=== PATIENT | female | born 1990 | race Caucasian/White ===

== ENCOUNTER 2020-11-23 05:29 | Observation (INO) ==
[2020-11-23 06:18] LABS: ABS Eosinophils 0.1 10^3/ul (0-0.6); ABS Lymphocytes 0.5 10^3/ul (1.0-4.8); ABS Monocytes 0.2 10^3/ul (0-0.8); ABS Neutrophils 10.2 10^3/ul (1.5-7.7); Hematocrit 40 % (35-47); Hemoglobin 13.3 g/dL (12.0-16.0); Lymphocyte % 4.8 %; Mean Corpuscular HGB Conc 34 g/dL (31-36); Mean Corpuscular Hemoglobin 31 pg (27-31); Mean Corpuscular Volume 93 fL (80-97); Mean Platelet Volume 7.4 fL (7.4-10.4); Platelet Count 375 10^3/uL (150-450); Red Blood Count 4.26 10^6 /uL (3.70-4.87); Red Cell Distribution Width 13 % (10-15); White Blood Count 11.1 10^3/uL (3.5-10.8)
[2020-11-23 06:30] LABS: INR 1.16 (0.82-1.09)
[2020-11-23 06:48] LABS: Albumin 4.7 g/dL (3.2-5.2); Albumin/Globulin Ratio 1.7 (1-3); BUN/Creatinine Ratio 23.1 (8-20); C Reactive Protein 11.55 mg/L (<8.01); Calcium 9.1 mg/dL (8.6-10.3); EGFR African American 128.6 (>60); EGFR Non-African American 106.3 (>60); Globulin 2.8 g/dL (2-4); Magnesium 1.8 mg/dL (1.9-2.7); Potassium 4.1 mmol/L (3.5-5.0); Total Bilirubin 0.4 mg/dL (0.2-1.0); Total Protein 7.5 g/dL (6.4-8.9)
[2020-11-23 07:05] LABS: Ferritin 76.9 ng/mL (11-307)
[2020-11-23] MEDS ORDERED: NS 0.9% 1000 ml BAG 1,000 ML IV ONE (08:18)
[2020-11-23] MEDS ORDERED: Albuterol HFA INHALER 8 gm MDI INH PRN (08:53)
[2020-11-23] MEDS ORDERED: NS 0.9% 1000 ml BAG 1,000 ML IV SCH (09:00)
[2020-11-23] MEDS ORDERED: Magnesium Sulfate IV 1GM/100ML 1 GM/100 ML BAG IV ONE (09:40)
[2020-11-23] MEDS ORDERED: Perflutren Lipid Microsphere 3 ML VIAL ONE (11:50)
[2020-11-24 08:37] LABS: ABS Eosinophils 0.5 10^3/ul (0-0.6); ABS Lymphocytes 2.3 10^3/ul (1.0-4.8); ABS Monocytes 0.7 10^3/ul (0-0.8); ABS Neutrophils 5.6 10^3/ul (1.5-7.7); Eosinophil % 5.7 %; Hematocrit 35 % (35-47); Hemoglobin 12.2 g/dL (12.0-16.0); Lymphocyte % 25.1 %; Mean Corpuscular HGB Conc 35 g/dL (31-36); Mean Corpuscular Hemoglobin 32 pg (27-31); Mean Corpuscular Volume 92 fL (80-97); Mean Platelet Volume 7.7 fL (7.4-10.4); Platelet Count 336 10^3/uL (150-450); Red Blood Count 3.83 10^6 /uL (3.70-4.87); Red Cell Distribution Width 13 % (10-15); White Blood Count 9.1 10^3/uL (3.5-10.8)
[2020-11-24 08:50] LABS: BUN/Creatinine Ratio 35.2 (8-20); Calcium 8.4 mg/dL (8.6-10.3); EGFR African American 159.3 (>60); EGFR Non-African American 131.7 (>60); Potassium 3.6 mmol/L (3.5-5.0)
[2020-11-24] MEDS ORDERED: Azithromycin 500 mg/250 ml NS 500 MG/250 ML BAG IVPB SCH (09:00)
[2020-11-24 10:11] VITALS: BP 120/47
== END 2020-11-24 14:25 | disposition home or self-care (01) ==
LOC: ED 05:29 → MED 05:29
PROVIDERS: ADMIT Internal Medicine; ATTEND Student in an Organized Health Care Education/Training Program